=== PATIENT | female | born 1995 | race Caucasian/White ===

== ENCOUNTER 2018-06-04 11:29 | Outpatient (CLI) | payer OTHER ==
--- NOTE | 2018-06-04 12:29 | Non Stress Test Report ---
Non Stress Test Datetime Report Generated by CPN: 06/04/2018 12:29 DEMOGRAPHIC EGA NST: 36.2 INDICATION Indication for Study: Ordered by Provider MONITORING Monitor Explained: Monitor Explained; Test Explained; Patient Verbalized Understanding Time on Monitor: 06/04/2018 11:42 Time off Monitor: 06/04/2018 12:19 NST Duration: 37 NST INTERVENTIONS NST Interventions: None Physician Notified NST: J Rincon CNM BABY A: [id number] BABY A Movement : Present Contraction Frequency : x1 FHR Baseline : 140 Accelerations : 15X15 Decelerations : None Variability : Moderate 6-25bpm NST Review: Meets Criteria for Reactive NST NST Review and Verified By : CONI AMEZQUITA RN NST Results: Reactive NST REPORT Report Trigger: Send Report
[2018-06-04 12:37] LABS: APPEARANCE,URINE CLEAR; BILIRUBIN,URINE NEGATIVE (NEGATIVE); COLOR,URINE STRAW; GLUCOSE, URINE NEGATIVE (NEGATIVE); KETONES,URINE NEGATIVE (NEGATIVE); LEUKOCYTE ESTERASE,URINE NEGATIVE (NEGATIVE); NITRITE,URINE NEGATIVE (NEGATIVE); PROTEIN,URINE NEGATIVE (NEGATIVE); URINE SPECIFIC GRAVITY 1.004; UROBILINOGEN,URINE NEGATIVE mg/dL (<2.0)
[2018-06-04 12:53] LABS: URINE AMPHETAMINES SCREEN NEGATIVE; URINE BARBITURATES SCREEN NEGATIVE; URINE BENZODIAZEPINES SCREEN NEGATIVE; URINE COCAINE SCREEN NEGATIVE; URINE MARIJUANA (THC) SCREEN NEGATIVE; URINE METHADONE SCREEN NEGATIVE; URINE PHENCYCLIDINE SCREEN NEGATIVE
== END 2018-06-04 12:23 | disposition home or self-care (01) ==
LOC: LC 11:29
PROVIDERS: ATTEND Obstetrics & Gynecology Gynecology
PROC: 4A1HXCZ Monitoring of Products of Conception, Cardiac Rate, External Approach (ICD-10-PCS; principal; 2018-06-04)
DX: O47.03 False labor before 37 completed weeks of gestation, third trimester (principal); Z3A.36 36 weeks gestation of pregnancy
CPT/HCPCS: 59025; 80307; 81001

== ENCOUNTER 2018-06-17 12:25 | Outpatient (CLI) | payer OTHER ==
--- NOTE | 2018-06-17 13:10 | Non Stress Test Report ---
Non Stress Test Datetime Report Generated by CPN: 06/17/2018 13:09 DEMOGRAPHIC EGA NST: 37.6 EGA NST: 37.6 INDICATION Indication for Study: Decreased Movement; Ordered by Provider Indication for Study: Ordered by Provider MONITORING Monitor Explained: Monitor Explained; Test Explained; Patient Verbalized Understanding Monitor Explained: Monitor Explained; Test Explained; Patient Verbalized Understanding Time on Monitor: 06/17/2018 12:35 Time on Monitor: 06/17/2018 12:35 Time off Monitor: 06/17/2018 12:57 NST Duration: 22 NST INTERVENTIONS NST Interventions: None NST Interventions: PO Hydration; Reposition Patient Physician Notified NST: Padmini Patel BABY A: [id number] BABY A Movement : Present Contraction Frequency : 0 FHR Baseline : 145 Accelerations : 15X15 Decelerations : None Variability : Moderate 6-25bpm NST Review: Meets Criteria for Reactive NST NST Review and Verified By : Elizabeth Coe [facility] NST Results: Reactive NST REPORT Report Trigger: Send Report
[2018-06-17 13:22] LABS: APPEARANCE,URINE SLIGHTLY-CLOUDY; BILIRUBIN,URINE NEGATIVE (NEGATIVE); COLOR,URINE STRAW; GLUCOSE, URINE NEGATIVE (NEGATIVE); KETONES,URINE NEGATIVE (NEGATIVE); LEUKOCYTE ESTERASE,URINE MODERATE (NEGATIVE); NITRITE,URINE NEGATIVE (NEGATIVE); PROTEIN,URINE NEGATIVE (NEGATIVE); URINE SPECIFIC GRAVITY 1.006; UROBILINOGEN,URINE NEGATIVE mg/dL (<2.0)
[2018-06-17 13:49] LABS: URINE AMPHETAMINES SCREEN NEGATIVE; URINE BARBITURATES SCREEN NEGATIVE; URINE BENZODIAZEPINES SCREEN NEGATIVE; URINE COCAINE SCREEN NEGATIVE; URINE MARIJUANA (THC) SCREEN NEGATIVE; URINE METHADONE SCREEN NEGATIVE; URINE PHENCYCLIDINE SCREEN NEGATIVE
== END 2018-06-17 13:01 | disposition home or self-care (01) ==
LOC: LC 12:25
PROVIDERS: ATTEND Student in an Organized Health Care Education/Training Program
PROC: 4A1HXCZ Monitoring of Products of Conception, Cardiac Rate, External Approach (ICD-10-PCS; principal; 2018-06-17)
DX: O36.8130 Decreased fetal movements, third trimester, not applicable or unspecified (principal); Z3A.37 37 weeks gestation of pregnancy
CPT/HCPCS: 59025; 80307; 81005

== ENCOUNTER 2020-05-10 20:08 | Outpatient (CLI) | payer OTHER ==
[2020-05-10 22:30] LABS: APPEARANCE,URINE CLEAR; BILIRUBIN,URINE NEGATIVE (NEGATIVE); COLOR,URINE YELLOW; GLUCOSE, URINE NEGATIVE (NEGATIVE); KETONES,URINE TRACE mg/dL (NEGATIVE); LEUKOCYTE ESTERASE,URINE NEGATIVE (NEGATIVE); NITRITE,URINE NEGATIVE (NEGATIVE); PROTEIN,URINE NEGATIVE (NEGATIVE); URINE SPECIFIC GRAVITY 1.013; UROBILINOGEN,URINE NEGATIVE mg/dL (<2.0)
[2020-05-10 22:52] LABS: URINE AMPHETAMINES SCREEN NEGATIVE; URINE BARBITURATES SCREEN NEGATIVE; URINE BENZODIAZEPINES SCREEN NEGATIVE; URINE COCAINE SCREEN NEGATIVE; URINE MARIJUANA (THC) SCREEN NEGATIVE; URINE METHADONE SCREEN NEGATIVE; URINE PHENCYCLIDINE SCREEN NEGATIVE
== END 2020-05-10 22:41 | disposition home or self-care (01) ==
LOC: LC 20:08
PROVIDERS: ATTEND Obstetrics & Gynecology
DX: O47.1 False labor at or after 37 completed weeks of gestation (principal); Z3A.37 37 weeks gestation of pregnancy
CPT/HCPCS: 59025; 80307; 81005

== ENCOUNTER 2020-05-13 23:36 | Outpatient (CLI) | payer OTHER ==
--- NOTE | 2020-05-13 23:46 | Non Stress Test Report ---
Non Stress Test Datetime Report Generated by CPN: 05/13/2020 23:46 DEMOGRAPHIC EGA NST: 38.0 INDICATION Indication for Study (NST) Other: lc / gestational age >32 weeks VITAL SIGNS Temperature - NST: 98.5 Pulse - NST: 101 RESP - NST: 16 NBPSYS NST: 118 NBPDIA NST: 63 MONITORING Monitor Explained: Monitor Explained; Test Explained; Patient Verbalized Understanding Time on Monitor: 05/10/2020 20:26 Time off Monitor: 05/10/2020 21:10 NST Duration: 44 NST INTERVENTIONS NST Interventions: PO Hydration; Reposition Patient Physician Notified NST: dr ayala BABY A: [id number] BABY A Movement : Present Contraction Frequency : x3 FHR Baseline : 135 Accelerations : 15X15 Decelerations : None Variability : Moderate 6-25bpm NST Review: Meets Criteria for Reactive NST NST Review and Verified By : Spike Damon RN NST Results: Reactive NST REPORT Report Trigger: Send Report
[2020-05-14 00:33] LABS: APPEARANCE,URINE SLIGHTLY-CLOUDY; BILIRUBIN,URINE NEGATIVE (NEGATIVE); COLOR,URINE YELLOW; GLUCOSE, URINE NEGATIVE (NEGATIVE); KETONES,URINE NEGATIVE (NEGATIVE); LEUKOCYTE ESTERASE,URINE NEGATIVE (NEGATIVE); NITRITE,URINE NEGATIVE (NEGATIVE); PROTEIN,URINE NEGATIVE (NEGATIVE); URINE SPECIFIC GRAVITY 1.013; UROBILINOGEN,URINE NEGATIVE mg/dL (<2.0)
[2020-05-14 00:50] LABS: URINE AMPHETAMINES SCREEN NEGATIVE; URINE BARBITURATES SCREEN NEGATIVE; URINE BENZODIAZEPINES SCREEN NEGATIVE; URINE COCAINE SCREEN NEGATIVE; URINE MARIJUANA (THC) SCREEN NEGATIVE; URINE METHADONE SCREEN NEGATIVE; URINE PHENCYCLIDINE SCREEN NEGATIVE
--- NOTE | 2020-05-14 01:20 | Non Stress Test Report ---
Non Stress Test Datetime Report Generated by CPN: 05/14/2020 01:20 DEMOGRAPHIC EGA NST: 38.3 INDICATION Indication for Study (NST) Other: contractions URINE RESULTS Urine Protein, NST: Negative Urine Ketones - NST: Negative Urine Glucose - NST: Negative Urine Blood - NST: Negative MONITORING Time on Monitor: 05/13/2020 23:48 Time off Monitor: 05/14/2020 01:02 NST Duration: 74 NST INTERVENTIONS NST Interventions: None Physician Notified NST: Dr. Noyola BABY A Movement : Present Contraction Frequency : irregular FHR Baseline : 135 Accelerations : 15X15 Decelerations : None Variability : Moderate 6-25bpm NST Review: Meets Criteria for Reactive NST NST Review and Verified By : Annamaria Vyas RN NST Results: Reactive NST REPORT Report Trigger: Send Report
== END 2020-05-14 01:13 | disposition home or self-care (01) ==
LOC: LC 23:36
PROVIDERS: ATTEND Obstetrics & Gynecology
DX: O47.1 False labor at or after 37 completed weeks of gestation (principal); Z3A.38 38 weeks gestation of pregnancy
CPT/HCPCS: 59025; 80307; 81001

== ENCOUNTER 2020-05-16 04:18 | Inpatient (IN) | payer OTHER ==
[2020-05-16] MEDS ORDERED: OXYTOCIN/0.9 % SODIUM CHLORIDE 30 UNIT/500 ML RTUINJ ONE (04:31)
[2020-05-16] MEDS ORDERED: LIDOCAINE 1% INJ-PF (10 MG/ML) 30 ML SDV ONE (04:31)
[2020-05-16] MEDS ORDERED: RINGERS SOLUTION,LACTATED 1,000 ML IV PRN (04:31)
[2020-05-16] MEDS ORDERED: OXYTOCIN 10 UNIT/ML VIAL ONE (04:31)
[2020-05-16] MEDS ORDERED: MISOPROSTOL 0.2 MG TABLET ONE (04:31)
[2020-05-16] MEDS ORDERED: RINGERS SOLUTION,LACTATED 1,000 ML IV ONE (04:31)
--- NOTE | 2020-05-16 04:59 | Admission Physical ---
Datetime Report Generated by CPN: 05/16/2020 04:58 CURRENT ADMISSION Chief Complaint: Uterine Contractions Indication for Induction: Not Applicable Admit Impression : Term, Intrauterine Admit Plan: Admit to Unit ALLERGIES Medication Allergies: No Medication Allergies: No Known Allergies (05/13/2020) Latex: No Latex Allergies OBSTETRICAL HISTORY EDC: 05/24/2020 00:00 : 2 Para: 1 Livin Gestational Diabetes: No Rh Sensitization: No Incompetent Cervix: No TERE: No Infertility: No ART Treatment: No Uterine Anomaly: No IUGR: No Hx Previous C/S: No Macrosomia: No Hx Loss/Stillborn: No PIH: No Hx : No Placenta Previa/Abruption: No Depression/PP Depression: No PTL/PROM: No Post Hemorrhage: No Current Procedures: Ultrasound Obstetrical History Comments: G1- term, , 2017 G2- current SEE RECORDS Alcohol: No Marijuana : No Cocaine: No Other Illicit Drugs: No Cigarettes: Never Smoker. [id number] MEDICAL HISTORY Diabetes: No Blood Transfusion: No Pulmonary Disease (Asthma, TB): No Breast Disease: No Hypertension: No Nicker Surgery: No Heart Disease: No Hosp/Surgery: Yes Autoimmune Disorder: No Anesthetic Complications: No Kidney Disease: No Abnormal Pap Smear: No Neuro/Epilepsy: No Psychiatric Disorders: No Other Medical Diseases: No Hepatitis/Liver Disease: No Significant Family History: No Varicosities/Phlebitis: No Trauma/Violence : No Thyroid Dysfunction: No Medical History Comments: childbirth INFECTIOUS HISTORY Gonorrhea: No Genital Herpes: No Chlamydia: Yes Tuberculosis: No Syphilis: No Hepatitis: No HIV/AIDS Exposure: No Rash or Viral Illness: No HPV: No Infectious History Comments: chlamydia in 2015 PHYSICAL EXAM General: Normal HEENT: Normal Neurologic: Normal Thyroid: Normal Heart: Normal Lungs: Normal Breast: Deferred Back: Normal Abdomen: Normal Genitourinary Exam: Normal Extremities: Normal DTRs: Normal Pelvic Type: Adequate FETUS A EGA: 38.6 PLANS FOR LABOR AND DELIVERY Labor and Delivery: None Other Pain Management Plans: undecided Feeding Preference: Breast Circumcision: Yes INFORMED CONSENT Signature: with User ID: [email or web address]
[2020-05-16 05:05] LABS: APPEARANCE,URINE CLEAR; BILIRUBIN,URINE NEGATIVE (NEGATIVE); COLOR,URINE YELLOW; GLUCOSE, URINE NEGATIVE (NEGATIVE); KETONES,URINE NEGATIVE (NEGATIVE); LEUKOCYTE ESTERASE,URINE NEGATIVE (NEGATIVE); NITRITE,URINE NEGATIVE (NEGATIVE); PROTEIN,URINE NEGATIVE (NEGATIVE); URINE SPECIFIC GRAVITY 1.011; UROBILINOGEN,URINE NEGATIVE mg/dL (<2.0)
[2020-05-16] MEDS ORDERED: ROPIVACAINE HCL 0.2% INJ/PF (2 MG/ML) 20 ML SDV ONE (05:22)
[2020-05-16] MEDS ORDERED: FENTANYL/BUPIVACAINE/NS/PF 300 MCG/150 ML RTUINJ EPI ONE (05:22)
[2020-05-16] MEDS ORDERED: EPHEDRINE SULFATE INJ 50 MG/1 ML AMPULE ONE (05:22)
[2020-05-16 05:24] LABS: ABSOLUTE LYMPHOCYTES (AUTO) 1.9 10^3/uL (0.5-4.7); ABSOLUTE MONOCYTES (AUTO) 0.7 10^3/uL (0.1-1.4); ABSOLUTE NEUT (AUTO) 5.7 10^3/uL (1.7-8.2); BASOPHILS % (AUTO) 0.4 % (0-2); EOSINOPHILS % (AUTO) 0.5 % (0-6); HEMOGLOBIN 13.4 g/dL (12.0-15.5); LYMPHOCYTES % (AUTO) 22.2 % (13-45); MEAN CORPUSCULAR HEMOGLOBIN 33.1 pg (27.0-33.4); MEAN CORPUSCULAR HGB CONC 35.1 g/dL (32.0-36.0); MEAN CORPUSCULAR VOLUME 94 fl (80-97); MONOCYTES % (AUTO) 8.3 % (3-13); PLATELET COUNT 208 10^3/uL (150-450); RED BLOOD COUNT 4.04 10^6/uL (3.72-5.28); SEGMENTED NEUTROPHILS % (AUTO) 68.6 % (42-78); TOTAL CELLS COUNTED % (AUTO) 100 %; WHITE BLOOD COUNT 8.4 10^3/uL (4.0-10.5)
[2020-05-16 05:25] LABS: URINE AMPHETAMINES SCREEN NEGATIVE; URINE BARBITURATES SCREEN NEGATIVE; URINE BENZODIAZEPINES SCREEN NEGATIVE; URINE COCAINE SCREEN NEGATIVE; URINE MARIJUANA (THC) SCREEN NEGATIVE; URINE METHADONE SCREEN NEGATIVE; URINE PHENCYCLIDINE SCREEN NEGATIVE
[2020-05-16] MEDS ORDERED: ACETAMINOPHEN 650 MG SUPP.RECT PR PRN (06:57)
[2020-05-16] MEDS ORDERED: GLYCERIN/WITCH HAZEL LEAF 1 EACH MED..WIPE TP PRN (06:57)
[2020-05-16] MEDS ORDERED: OXYTOCIN/0.9 % SODIUM CHLORIDE 30 UNIT/500 ML RTUINJ IV PRN (06:57)
[2020-05-16] MEDS ORDERED: DIBUCAINE 1% OINTMENT 28 GM TP PRN (06:57)
[2020-05-16] MEDS ORDERED: PSEUDOEPHEDRINE HCL 30 MG TABLET PO PRN (06:57)
[2020-05-16] MEDS ORDERED: DIPHENHYDRAMINE HCL 25 MG CAPSULE PO PRN (06:57)
[2020-05-16] MEDS ORDERED: ACETAMINOPHEN WITH CODEINE #3 TABLET PO PRN (06:57)
[2020-05-16] MEDS ORDERED: ZOLPIDEM TARTRATE 5 MG TABLET PO PRN (06:57)
[2020-05-16] MEDS ORDERED: PROMETHAZINE HCL INJ 25 MG/1 ML VIAL IV PRN (06:57)
[2020-05-16] MEDS ORDERED: PROMETHAZINE HCL 25 MG SUPP.RECT PR PRN (06:57)
[2020-05-16] MEDS ORDERED: MAGNESIUM HYDROXIDE SUSP 30 ML UDCUP PO PRN (06:57)
[2020-05-16] MEDS ORDERED: BENZOCAINE/MENTHOL AEROSOL SPRAY 56 ML TOP PRN (06:57)
[2020-05-16] MEDS ORDERED: MEASLES,MUMPS&RUBELLA VACC/PF 0.5 ML VIAL SUBCUT PRN (06:57)
[2020-05-16] MEDS ORDERED: NA PHOS,M-B/NA PHOS,DI-BA (ADULT) 133 ML ENEMA PR PRN (06:57)
[2020-05-16] MEDS ORDERED: DIPH/PERTUSS(ACELL)/TETANUS VAC/PF 0.5 ML SYR (>=10YO) IM PRN (06:57)
[2020-05-16] MEDS ORDERED: PROMETHAZINE HCL 25 MG TABLET PO PRN (06:57)
--- NOTE | 2020-05-16 07:17 | Warning Signs in Babies ---
VOD Warning Signs Datetime Report Generated by [facility]: 05/16/2020 07:17 VOD#608 -Warning Signs in Babies: Viewed with Parent(s)/Family (05/16/2020 07:15:Amandeep Manrique RN)
--- NOTE | 2020-05-16 09:29 | Delivery Summary ---
Del Sum A-C Datetime Report Generated by CPN: 05/16/2020 09:28 DELIVERY PERSONNEL DELIVERY PERSONNEL: [id number] Delivery Doctor:: Andrew Boone MD Labor and Delivery Nurse:: Lilia Richard RNbullet slugs inspector Nurse:: Morena Powell, RNC Thread Spinner/STAVE JOINTER: Sol [place], ST MATERNAL INFORMATION Delivery Anesthesia: Epidural Medications After Delivery: Pitocin 30 Units in 500ml NS/D5W Delivery QBL: 200 Maternal Complications: None LABOR SUMMARY EDC: 05/24/2020 00:00 No. Babies in Womb: 1 Attempted: No Labor Anesthesia: Epidural LABOR INFORMATION Reason for Induction: Not Applicable Complete Dilatation: 05/16/2020 06:38 Oxytocin: N/A Group B Beta Strep: negative Antibiotics # of Doses: 0 Name of Antibiotic Given: N/A Steroids Given: None Reason Steroids Not Administered: Not Applicable MEMBRANES Membranes Rupture Method: Spontaneous Rupture of Membranes: 05/16/2020 04:00 Length of Rupture (hr): 2.80 Amniotic Fluid Color: Clear Amniotic Fluid Amount: Moderate Amniotic Fluid Odor: Normal STAGES OF LABOR Stage 2 hr: 0 Stage 2 min: 10 Stage 3 hr: 0 Stage 3 min: 3 VAGINAL DELIVERY Episiotomy: None Laceration #1: None Laceration Extension #1: N/A Laceration Repair: Not Applicable Sponge Count Correct: Yes Sharps Count Correct: Yes CSECTION DELIVERY Primary Indication: N/A Secondary Indication: N/A CSection Incidence: N/A Labor: N/A Elective: N/A CSection Incision: N/A BABY A INFORMATION Delivery Date/Time: 05/16/2020 06:48 Method of Delivery: Vaginal Nurse Controlled Delivery: No Born in Route : No : N/A Forceps: N/A Vacuum Extraction: N/A Shoulder Dystocia : No PRESENTATION/POSITION BABY A Presentation: Cephalic Cephalic Presentation: Vertex Vertex Position: Left Occipital Anterior Breech Presentation: N/A PLACENTA INFORMATION BABY A Placenta Delivery Time : 05/16/2020 06:51 Placenta Method of Delivery: Spontaneous Placenta Status: Delivered SCORES BABY A Heart Rate 1 min: >100 bpm Resp Effort 1 min: Good Cry Reflex Irritability 1 min: Cough or Sneeze or Pulls Away Muscle Tone 1 min: Active Motion Color 1 min: Body [place], Extremities Blue Resuscitation Effort 1 min: Tactile Stimulation SCORE 1 MIN: 9 Heart Rate 5 min: >100 bpm Resp Effort 5 min: Good Cry Reflex Irritability 5 min: Cough or Sneeze or Pulls Away Muscle Tone 5 min: Active Motion Color 5 min: Body [place], Extremities Blue Resuscitation Effort 5 min: Tactile Stimulation SCORE 5 MIN: 9 INFORMATION BABY A Gestational Age at Delivery: 38.6 Gestational Status: Early Term- 37- 38.6 Weeks Outcome : Liveborn Infant Condition : Stable Sex: Male IDENTIFICATION BABY A Verification Date/Time: 05/16/2020 07:03 ID Band Number: [id number] Mother's Name Verified: Yes RN Verifying : Erin Richard RN/ Howie Manrique RN WEIGHT/LENGTH BABY A Birthweight (gm): 4157 Infant Weight (lb): 9 Infant Weight (oz): 3 Infant Length (in): 21.00 Infant Length (cm): 53.34 CORD INFORMATION BABY A No. Cord Vessels: 3 Nuchal Cord : Around Neck x1, Tight Cord Blood Taken: Yes-For Eval (Mom's Blood Type - or O+) ASSESSMENT BABY A Infant Complications: None Physical Findings at Delivery: Within Normal Limits Skin to Skin: Yes Skin to Skin Time (min): 60 Transferred To: Remains with Mother BABY B INFORMATION : N/A SIGNATURES Signature: with User ID: [email or web address]
--- NOTE | 2020-05-16 09:29 | Birth Certificate Data ---
Cert Data Datetime Report Generated by CPN: 05/16/2020 09:29 CERTIFICATE DATA 47a. Care: Yes (05/10/2020 20:29:Susannah Sutton RN) 48a. Number of Prev Live Births: 1 (05/10/2020 20:29:Susannah Sutton RN) 48b. Now Livin (05/10/2020 20:29:Susannah Sutton RN) 48c. Live Births Now : 0 (05/10/2020 20:29:QS system process) 48d. Date of Last Live : 06/23/2018 00:00 (05/10/2020 20:29:Susannah Sutton RN) 48e. Losses: 0 (05/10/2020 20:29:Susannah Sutton RN) RISK FACTORS IN THIS 49a. Diabetes: No (05/10/2020 20:29:Susannah Sutton RN) 49b. Hypertension: No (05/10/2020 20:29:Susannah Sutton RN) 49d. Stillborns: No (05/10/2020 20:29:Susannah Sutton RN) 49d. IUGR: No (05/10/2020 20:29:Susannah Sutton RN) 49e. Infertility Treatment: No (05/10/2020 20:29:Susannah Sutton RN) Mother's Height 50b. Height Inches: 66 (05/16/2020 08:55:QS system process) Mother's Weight 51a. Pre- Weight (lbs): 140 (05/10/2020 20:29:Susannah Sutton RN) 51b. Weight at Delivery (lbs): 167 (05/16/2020 08:55:QS system process) Infections Present/Treated 53a. Gonorrhea: No (05/10/2020 20:29:Susannah Sutton RN) Results this Hospital Visit : Negative (05/10/2020 20:29:NOE Acevedo) 53b. Syphilis: No (05/10/2020 20:29:Susannah Sutton RN) Results this Hospital Visit: NONREACTIVE (05/16/2020 05:11:QS system process) 53c. Chlamydia: Yes (05/10/2020 20:29:Susannah Sutton RN) Results this Hospital Visit: Negative (05/10/2020 20:29:NOE Acevedo) 53d. Hepatitis B: No (05/10/2020 20:29:Susannah Sutton RN) Results this Hospital Visit: Negative (05/10/2020 20:29:Susannah Sutton RN) 53e. Hepatitis C: Negative (05/10/2020 20:29:NOE Acevedo) 53h. Mother Tested for HBsAG: Yes (05/10/2020 20:29:NOE Acevedo) 53i. Date Tested: 10/14/2019 00:00 (05/10/2020 20:29:NOE Acevedo) 53j. Test Result: Negative (05/10/2020 20:29:Susannah Sutton RN) Obstetric Procedures 54a, b, c. Obstetric Procedures: Ultrasound (05/10/2020 20:29:Susannah Sutton RN) Cigarette Smoking Cigarette Smoking: Never Smoker. [id number] (05/10/2020 20:29:Susannah Sutton RN) 55a. 3 Months Before Preg - Ci (05/10/2020 20:29:Lilia Richard RN) 55b. 1st Trimester of Preg- Ci (05/10/2020 20:29:Lilia Richard RN) 55c. 2nd Trimester of Preg- Ci (05/10/2020 20:29:Lilia Richard RN) 55d. 3rd Trimester of Preg- Ci (05/10/2020 20:29:Lilia Richard RN) Onset of Labor 56a. PROM >12 Hrs: 2.80 (05/16/2020 04:51:QS system process) 57a. Induction of Labor: N/A (05/10/2020 20:29:Lilia Richard RN) 57c. Non-Vertex Presentation A: Vertex (05/10/2020 20:29:Lilia Richard RN) 57d. Steroids - Lung Mat: None (05/10/2020 20:29:Lilia Richard RN) 57d. Steroids - Lung Mat: Not Applicable (05/10/2020 20:29:Lilia Richard RN) 57g. Moderate/Heavy Meconium: Clear (05/16/2020 06:35:Lilia Richard RN) 57h. Intolerance of Labor: N/A (05/10/2020 20:29:Lilia Richard RN) : N/A (05/10/2020 20:29:Lilia Richard RN) 57i. Epidural/Spinal Anesthesia: Epidural (05/10/2020 20:29:Lilia Richard RN) Method of Delivery 58a. Forceps - Unsuccessful A: N/A (05/10/2020 20:29:Lilia Richard RN) 58b. Vacuum - Unsuccessful A: N/A (05/10/2020 20:29:Lilia Richard RN) 58c. Presentation at 58c. Presentation at - A : Vertex (05/10/2020 20:29:Lilia Richard RN) 58c. Presentation at - A : N/A (05/10/2020 20:29:Lilia Richard RN) 58c. Presentation at - A : Cephalic (05/16/2020 04:29:Lilia Richard RN) Final Route and Method of Del 58d. Baby A Route/Delivery: Vaginal (05/16/2020 06:48:Lilia Richard RN) 58e. Trial of Labor Attempted: No (05/10/2020 20:29:Lilia Richard RN) 58e. Trial of Labor Attempted A: N/A (05/10/2020 20:29:Lilia Richard RN) 58e. Trial of Labor Attempted B: N/A (05/10/2020 20:29:Lilia Richard RN) Maternal Morbidity 59b. 3rd or 4th Degree Lacs: None (05/10/2020 20:29:Andrew Boone MD ([facility])) Birthweight Baby A: 4157 (05/10/2020 20:29:Amandeep Manrique RN) 60a. Pounds : 9 (05/10/2020 20:29:QS system process) 60b. Ounces: 3 (05/10/2020 20:29:QS system process) 61. GA at Delivery Baby A: 38.6 (05/10/2020 20:29:Lilia Richard RN) : Early Term- 37- 38.6 Weeks (05/10/2020 20:29:QS system process) 62a. 5 Minute Baby A: 9 (05/10/2020 20:29:QS system process)
[2020-05-16] MEDS: SENNOSIDES/DOCUSATE 8.6-50 MG 1 EACH TABLET PO SCH (09:53)
[2020-05-16] MEDS: PRENATAL VITAMIN W DHA CAPSULE PO SCH (09:53)
[2020-05-16] MEDS: DOCUSATE SODIUM 100 MG CAPSULE PO SCH ×2 (09:53→17:34)
[2020-05-16] MEDS: FERROUS SULFATE 325 MG TABLET PO SCH ×2 (09:54→17:34)
[2020-05-16] MEDS: FAMOTIDINE 20 MG TABLET PO SCH ×2 (14:42→21:37)
[2020-05-16] MEDS: IBUPROFEN 800 MG TABLET PO SCH ×2 (14:43→21:38)
[2020-05-17] MEDS: IBUPROFEN 800 MG TABLET PO SCH ×2 (05:27→14:17)
[2020-05-17 08:08] VITALS: BP 112/76
[2020-05-17 08:31] LABS: HEMATOCRIT 39.9 % (36.0-47.0); MEAN CORPUSCULAR HGB CONC 35.1 g/dL (32.0-36.0); MEAN CORPUSCULAR VOLUME 94 fl (80-97); PLATELET COUNT 212 10^3/uL (150-450); RED BLOOD COUNT 4.24 10^6/uL (3.72-5.28); RED CELL DISTRIBUTION WIDTH 13.5 % (11.5-14.0); WHITE BLOOD COUNT 8.3 10^3/uL (4.0-10.5)
[2020-05-17] MEDS: DOCUSATE SODIUM 100 MG CAPSULE PO SCH (10:52)
[2020-05-17] MEDS: FERROUS SULFATE 325 MG TABLET PO SCH (10:52)
[2020-05-17] MEDS: PRENATAL VITAMIN W DHA CAPSULE PO SCH (10:53)
[2020-05-17] MEDS: SENNOSIDES/DOCUSATE 8.6-50 MG 1 EACH TABLET PO SCH (10:53)
[2020-05-17] MEDS: FAMOTIDINE 20 MG TABLET PO SCH (10:54)
--- NOTE | 2020-05-17 13:36 | PDOC DISCHARGE SUMMARY ---
Impression - Admit/DC Date/PCP Admission Date/Primary Care Provider: 05/16/20 04:35 JASON MORELOS MD Discharge Date: 05/17/20 - Discharge Diagnosis (1) Delivery normal Is this a current diagnosis for this admission?: Yes (2) Is this a current diagnosis for this admission?: Yes - Assessment Summary: 24yo s/p ppd1-stable and ready for early discharge (approved by associate director data & analytics as well), understands warning s/s and reasons to rtc/[facility]. - Additional Information Resuscitation Status: Full Code Discharge Diet: As Tolerated, Regular Discharge Activity: Activity As Tolerated, Balance Activity w/Rest, No Lifting Over 10 Pounds, Pelvic Rest, No tub bath, Walk Frequently Referrals: JASON MORELOS MD [Primary Care Provider] - Prescriptions: Ibuprofen [Motrin 800 mg Tablet] 800 mg PO Q8HP PRN #20 tablet PRN Reason: For Pain Scale 1-3 Home Medications: Vits96/Iron Fum/Folic [ Tablet] 1 tab PO DAILY 06/04/18 Ibuprofen [Motrin 800 mg Tablet] 800 mg PO Q8HP PRN #20 tablet 05/17/20 Hospital Course 59. Maternal Morbidity (serious complications experinced by the mother associated with labor and delivery: None of the above Results Laboratory Results: WBC 8.3 10^3/uL (4.0-10.5) 05/17/20 07:40 RBC 4.24 10^6/uL (3.72-5.28) 05/17/20 07:40 Hgb 14.0 g/dL (12.0-15.5) 05/17/20 07:40 Hct 39.9 % (36.0-47.0) 05/17/20 07:40 MCV 94 fl (80-97) 05/17/20 07:40 MCH 33.0 pg (27.0-33.4) 05/17/20 07:40 MCHC 35.1 g/dL (32.0-36.0) 05/17/20 07:40 RDW 13.5 % (11.5-14.0) 05/17/20 07:40 Plt Count 212 10^3/uL (150-450) 05/17/20 07:40 Lymph % (Auto) 22.2 % (13-45) 05/16/20 05:11 [place] % (Auto) 8.3 % (3-13) 05/16/20 05:11 Eos % (Auto) 0.5 % (0-6) 05/16/20 05:11 Baso % (Auto) 0.4 % (0-2) 05/16/20 05:11 Absolute Neuts (auto) 5.7 10^3/uL (1.7-8.2) 05/16/20 05:11 Absolute Lymphs (auto) 1.9 10^3/uL (0.5-4.7) 05/16/20 05:11 Absolute Monos (auto) 0.7 10^3/uL (0.1-1.4) 05/16/20 05:11 Absolute Eos (auto) 0.0 10^3/uL (0.0-0.6) 05/16/20 05:11 Absolute Basos (auto) 0.0 10^3/uL (0.0-0.2) 05/16/20 05:11 Seg Neutrophils % 68.6 % (42-78) 05/16/20 05:11 Urine Color YELLOW 05/16/20 04:00 Urine Appearance CLEAR 05/16/20 04:00 Urine pH 6.0 (5.0-9.0) 05/16/20 04:00 Ur Specific [place] 1.011 05/16/20 04:00 Urine Protein NEGATIVE mg/dL (NEGATIVE) 05/16/20 04:00 Urine Glucose (UA) NEGATIVE mg/dL (NEGATIVE) 05/16/20 04:00 Urine Ketones NEGATIVE mg/dL (NEGATIVE) 05/16/20 04:00 Urine Blood SMALL (NEGATIVE) H 05/16/20 04:00 Urine Nitrite NEGATIVE (NEGATIVE) 05/16/20 04:00 Urine Bilirubin NEGATIVE (NEGATIVE) 05/16/20 04:00 Urine Urobilinogen NEGATIVE mg/dL (<2.0) 05/16/20 04:00 Ur Leukocyte Esterase NEGATIVE (NEGATIVE) 05/16/20 04:00 Urine Ascorbic Acid NEGATIVE (NEGATIVE) 05/16/20 04:00 Urine Opiates Screen NEGATIVE 05/16/20 04:00 Urine Methadone Screen NEGATIVE 05/16/20 04:00 Ur Barbiturates Screen NEGATIVE 05/16/20 04:00 Ur Phencyclidine Scrn NEGATIVE 05/16/20 04:00 Ur Amphetamines Screen NEGATIVE 05/16/20 04:00 U Benzodiazepines Scrn NEGATIVE 05/16/20 04:00 Urine Cocaine Screen NEGATIVE 05/16/20 04:00 U Marijuana (THC) Screen NEGATIVE 05/16/20 04:00 RPR NONREACTIVE (NONREACTIVE) 05/16/20 05:11 Blood Type O POSITIVE 05/16/20 05:11 Antibody Screen NEGATIVE 05/16/20 05:11
== END 2020-05-17 16:00 | disposition home or self-care (01) | DRG 807 ==
LOC: LC 04:18 → LR 04:35 → 2S 08:54
PROVIDERS: ADMIT Obstetrics & Gynecology Gynecology; ATTEND Obstetrics & Gynecology Gynecology
PROC: 10E0XZZ Delivery of Products of Conception, External Approach (ICD-10-PCS; principal; 2020-05-16)
DX: O69.1XX0 Labor and delivery complicated by cord around neck, with compression, not applicable or unspecified (principal); Z37.0 Single live birth; Z03.818 Encounter for observation for suspected exposure to other biological agents ruled out; Z3A.38 38 weeks gestation of pregnancy
CPT/HCPCS: 1967; 36415; 80307; 81005; 85025; 85027; 86592; 86850; 86900; 86901; 96372; J2590; J2795; J3010; J3490